=== PATIENT | male | born 1935 | race African-American/Black ===

== ENCOUNTER 2024-11-23 13:20 | Emergency (ER) | payer MEDICARE ==
[~2024-11-23] VITALS: Ht 185.4 cm; Wt 68.0 kg
[2024-11-23 13:28] VITALS: BP 155/87; PULSE 96; RESP 18; TEMP 98.1; O2SAT 97
== END 2024-11-23 15:03 | disposition home or self-care (01) ==
LOC: ER 13:20
DX: S16.1XXA Strain of muscle, fascia and tendon at neck level, initial encounter (principal); V49.49XA Driver injured in collision with other motor vehicles in traffic accident, initial encounter; Y93.89 Activity, other specified; Y92.89 Other specified places as the place of occurrence of the external cause; Y99.8 Other external cause status
CPT/HCPCS: 99284